=== PATIENT | male | born 1945 | race Hispanic/Latino ===

== ENCOUNTER 2020-03-27 13:06 | Observation (INO) | payer MEDICARE, OTHER ==
[~2020-03-27 13:06] MED LIST: Iopamidol-370 76% 500 ML 1 ML ONE
[2020-03-27 13:59] LABS: #Eosinphils 0.2 thou/uL (0.0-0.7); #Lymphocytes 1.7 thou/uL (1.20-3.40); #Monocytes 0.3 thou/uL (0.11-0.59); #Neutrophils 2.7 thou/uL (1.40-6.50); %Basophils 0.9 % (0.0-1.0); %Lymphocytes 34.4 % (21.0-51.0); %Monocytes 5.2 % (0.0-10.0); %Neutrophils 55.6 % (42.0-75.0); Hemoglobin 13.7 g/dL (14.0-18.0); Mean Corpuscular HGB CONC 36.9 g/dL (32.0-36.0); Mean Corpuscular Volume 94.7 fL (78.0-98.0); Mean Platelet Volume 7.5 fL (7.4-10.4); Platelet Count 183 thou/uL (130-400); RBC Distribution Width 12.5 % (11.5-14.5); Red Blood Cell (RBC) Count 3.91 mill/uL (4.70-6.10); White Blood Cell (WBC) Count 4.8 thou/uL (4.8-10.8)
[2020-03-27 14:13] LABS: PTT 29.3 sec (22.9-36.1)
[2020-03-27 15:54] LABS: ALT (SGPT) 93 U/L (8-55); AST (SGOT) 87 U/L (5-34); Albumin 4.4 g/dL (3.4-4.8); Alkaline Phosphatase 88 U/L (40-110); Anion Gap 15 mmol/L (10-20); BUN (Urea Nitrogen) 9 mg/dL (8.4-25.7); Bilirubin, Total 0.5 mg/dL (0.2-1.2); Calc. Creatinine Clearance 0 mL/min (70-130); Calcium 8.8 mg/dL (7.8-10.44); Carbon Dioxide 21 mmol/L (23-31); Chloride 95 mmol/L (98-107); Estimated GFR-MDRD 55; Globulin 4.5 g/dL (2.4-3.5); Glucose 362 mg/dL (83-110); Lipase 68 U/L (8-78); Potassium 4.1 mmol/L (3.5-5.1); Protein, Total 8.9 g/dL (5.8-8.1); Sodium 127 mmol/L (136-145)
--- NOTE | 2020-03-27 16:42 | CT ---
CTA AORTIC DISSECTION PROTOCOL USING IV CONTRAST AND 3D REFORMATTED IMAGIN03/27/20 COMPARISON: None. INDICATION: Chest and back pain for two weeks. FINDINGS: No acute aortic stenosis, occlusion or aneurysmal formation is demonstrated. There is an aberrant rig ht subclavian artery. There is moderate to severe narrowing involving the origin of the aberrant righ t subclavian artery due to atherosclerotic plaque. This is best seen on image 23 on the axial series. The remaining great vessel origins are widely patent. The right vertebral artery originates off the right common carotid artery. The celiac and SMA are widely patent. 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 There are duplicated left renal arteries. These are widely patent. The LANDRY is patent. Both c ommon iliac arteries are patent. There is a calcified granuloma in the right upper lobe. There are areas of subsegmental volume loss a ffecting both lungs. No pleural effusion is evident. No focal hepatic lesion is evident. The spleen, pancreas, and adrenal glands are normal appearing. Th ere is a small left renal cyst measuring 1.4 cm involving the left mid kidney. There is slight promin ence of the renal pelves bilaterally likely reflecting extrarenal pelves. There is moderate distentio n of the bladder. There is a moderate amount of retained stool within the colon. No free fluid or enl arged lymph nodes are evident. There are remote appearing compression abnormalities involving L1 and L2. There are scattered degener ative and osteoarthritic change. IMPRESSION: 1. Moderate to high grade stenosis involving the origin of an aberrant right subclavian artery. No additional hemodynamically significant stenosis, occlusion or aneurysmal formation demonstrated. 2. Moderate amount of retained stool within the colon. 3. Moderate distention of the bladder. 4. Left renal cyst. POS: BH
[2020-03-27 18:23] LABS: Troponin I 0.014 ng/mL (< 0.028)
[2020-03-27] MEDS ORDERED: Ondansetron ODT 4 MG TAB SL PRN (19:00)
[2020-03-27] MEDS ORDERED: Acetaminophen 325 MG TAB PO PRN (19:00)
[2020-03-27] MEDS ORDERED: Ondansetron PF 4 MG/2 ML Vial IVP PRN (19:00)
[2020-03-27] MEDS ORDERED: Nitroglycerin 0.4 MG TAB (25 Tab Bottle) PO PRN (19:37)
[2020-03-27] MEDS ORDERED: Dextrose 50% Abboject 50 ML SYRINGE SLOW IVP PRN (19:38)
[2020-03-27] MEDS ORDERED: Dextrose 5% in Water 1,000 ML IV PRN (19:38)
[2020-03-27] MEDS ORDERED: Aspirin 325 MG TAB PO SCH (19:45)
[2020-03-27 19:49] VITALS: BMI 28.2
--- NOTE | 2020-03-27 20:10 | HP ---
PRIMARY CARE PROVIDER: Unknown. CHIEF COMPLAINT: Chest pain. HISTORY OF PRESENT ILLNESS: Mr. Haynes is a pleasant 74-year-old gentleman, who was seen at [facility] on March 27, 2020. It appears that he has a history of coronary artery disease and STEMI with stents placed multiple years ago, but has been noncompliant in terms of followup. He presented to the emergency room with 10 days of chest pain, retrosternal, sharp, radiating to back, progressively worsening, no known aggravating factors, but improved with nitroglycerin paste and IV fluids. He denies any fevers or chills. He denies any nausea or vomiting. He reports mild epigastric discomfort, but is unable to characterize it further. REVIEW OF SYSTEMS: All systems were reviewed and found to be negative except for pertinent positives mentioned above. PAST MEDICAL HISTORY: Hypertension; dyslipidemia; hypothyroidism; diabetes mellitus type 2; coronary artery disease, status post PCI with stents. PAST SURGICAL HISTORY: Thyroid surgery and hernia surgery. SOCIAL HISTORY: The patient denies tobacco use, alcohol use, or recreational drug use. ALLERGIES: NO KNOWN DRUG ALLERGIES. CURRENT MEDICATIONS: None. PHYSICAL EXAMINATION: GENERAL: On examination, Mr. Haynes is awake and alert, not in acute distress. Blood pressure is 116/68, pulse is 70, respiratory rate 16, and oxygen saturation 96% on room air. He is afebrile. EYES: No scleral icterus. No conjunctival pallor. ENT: Moist mucosal membranes. No oropharyngeal erythema or exudates. NECK: Supple, nontender. Trachea is midline. RESPIRATORY: Accessory muscles of breathing are not active. Chest wall movements are symmetric bilaterally. Lungs are clear to auscultation without wheeze, rhonchi, or crepitations. CARDIOVASCULAR: S1 and S2 are heard, regular. Peripheral pulses palpable. ABDOMEN: Soft, nontender. Bowel sounds are heard. NEUROLOGIC: Cranial nerves 2 through 12 are intact. MUSCULOSKELETAL: Power is 5/5 in all 4 extremities. SKIN: No rashes. LYMPHATIC: No cervical lymphadenopathy. PSYCHIATRIC: Normal mood, normal affect. The patient is oriented to person, place, and time. LABORATORY DATA: Mr. Haynes's labs and investigations were reviewed. Electrocardiogram shows normal sinus rhythm, no ST changes to suggest an acute coronary syndrome. CT aortic dissection protocol showed moderate to high-grade stenosis involving the origin of an aberrant right subclavian artery. He had moderate amount of retained stool within the colon and moderate distention of the bladder. He had a left renal cyst. He has normal white count, normocytic anemia with hemoglobin 13.7, normal platelet count, INR 1.0, decreased sodium of 127, normal potassium, normal creatinine, normal total bilirubin, elevated AST of 87, elevated ALT of 93, normal alkaline phosphatase, normal troponin I x2, and normal lipase. ASSESSMENT AND PLAN: Mr. Haynes is a pleasant 74-year-old gentleman, who was seen at [facility] on March 27, 2020. His problem list includes: 1. Chest pain: Mr. Haynes is presenting with chest pain. His initial troponins are normal. Given his significant cardiac history, he will be admitted to the hospital on observation status for telemetry monitoring and for stress test. Further management depending on outcome of the test. 2. Hypothyroidism: It appears that Mr. Haynes has been noncompliant with his medications. We will check his TSH. 3. Hyponatremia: Etiology unclear, could be secondary to uncontrolled hypothyroidism. We will provide hydration and recheck sodium level. 4. Abnormal liver function tests: Could be secondary to liver problems or secondary to rhabdomyolysis. We will check CK level. We will also recheck liver function tests. 5. Medication noncompliance: The patient has been counseled regarding medication noncompliance. 6. Diabetes mellitus type 2: I will start him on Accu-Cheks and insulin sliding scale, and check hemoglobin A1c. Many thanks for allowing me to participate in Mr. Haynes's care. Please feel free to contact me with any questions or concerns. LEVEL OF RISK: Moderate. LEVEL OF COMPLEXITY: Moderate. Job ID: [id number]
[2020-03-27] MEDS: Sodium Chloride 0.9% 1,000 ML IV SCH (20:38)
[2020-03-27 20:56] LABS: Troponin I 0.028 ng/mL (< 0.028)
[2020-03-27] MEDS: HumaLOG 300 UNITS/3 ML VIAL SC PRN (21:58)
[2020-03-28 03:42] LABS: Hemoglobin A1c 13.3 % (4.0-6.0)
[2020-03-28 03:48] LABS: #Basophils 0.1 thou/uL (0.0-0.2); #Eosinphils 0.2 thou/uL (0.0-0.7); #Lymphocytes 2.5 thou/uL (1.20-3.40); #Monocytes 0.3 thou/uL (0.11-0.59); #Neutrophils 4.3 thou/uL (1.40-6.50); %Basophils 0.2 % (0.0-1.0); %Eosinophils 3.8 % (0.0-10.0); %Lymphocytes 34.7 % (21.0-51.0); %Monocytes 4.6 % (0.0-10.0); %Neutrophils 55.8 % (42.0-75.0); Hemoglobin 13.2 g/dL (14.0-18.0); Mean Corpuscular HGB CONC 37.3 g/dL (32.0-36.0); Mean Corpuscular Hemoglobin 35.4 pg (27.0-31.0); Mean Corpuscular Volume 95.1 fL (78.0-98.0); Mean Platelet Volume 7.6 fL (7.4-10.4); Platelet Count 183 thou/uL (130-400); RBC Distribution Width 12.5 % (11.5-14.5); Red Blood Cell (RBC) Count 3.73 mill/uL (4.70-6.10); White Blood Cell (WBC) Count 7.5 thou/uL (4.8-10.8)
[2020-03-28 03:49] LABS: ALT (SGPT) 70 U/L (8-55); AST (SGOT) 57 U/L (5-34); Albumin 4.1 g/dL (3.4-4.8); Alkaline Phosphatase 79 U/L (40-110); Anion Gap 19 mmol/L (10-20); BUN (Urea Nitrogen) 10 mg/dL (8.4-25.7); Bilirubin, Total 0.4 mg/dL (0.2-1.2); CK (CPK) 685 U/L (30-200); Calc. Creatinine Clearance 51 mL/min (70-130); Calcium 8.6 mg/dL (7.8-10.44); Carbon Dioxide 17 mmol/L (23-31); Chloride 98 mmol/L (98-107); Estimated GFR-MDRD 55; Globulin 3.7 g/dL (2.4-3.5); Glucose 340 mg/dL (83-110); Potassium 3.8 mmol/L (3.5-5.1); Protein, Total 7.8 g/dL (5.8-8.1); Sodium 130 mmol/L (136-145)
[2020-03-28] MEDS: HumaLOG 300 UNITS/3 ML VIAL SC PRN ×3 (05:38→21:20)
[2020-03-28] MEDS: Sodium Chloride 0.9% 1,000 ML IV SCH (08:52)
[2020-03-28] MEDS: Aspirin 325 mg Enteric Coated Tablet PO SCH (08:53)
[2020-03-28] MEDS ORDERED: Prevnar 13-Val Conj/PF 0.5 ML SYRINGE IM ONE (09:00)
[2020-03-28] MEDS ORDERED: ADENOSINE 60 MG/20 ML VIAL ONE (09:39)
--- NOTE | 2020-03-28 15:03 | NM ---
EXAM: NM Cardiac Stress W EF WF PROVIDED CLINICAL HISTORY: Chest pain COMPARISON: None FINDINGS: This examination was performed as a pharmacological myocardial perfusion stress test. There is diminished attenuation seen in the inferior left ventricular wall from base to apex on the s tress and resting acquisitions. No significant reversible defect is identified. The gated images demonstrate global hypokinesis greater involving the septum and inferior left ventricular wall. Mildl y diminished thickening is seen in the inferior left ventricular wall. Calculated left ventricular ejection fraction is 42%. IMPRESSION: 1. Abnormal myocardial perfusion study with a fixed defect in the inferior left ventricular wall sugg esting scarring. No significant reversible defect is seen to suggest ischemia. 2. Diminished LV function with decreased LVEF of 42%.
[2020-03-28] MEDS ORDERED: Acetaminophen 325 MG TAB PO SCH (16:30)
[2020-03-28] MEDS ORDERED: Communication Order-Pharmacy FS SCH (17:30)
[2020-03-28] MEDS ORDERED: glipiZIDE 5 MG TAB PO SCH (18:15)
[2020-03-28] MEDS ORDERED: metFORMIN 500 MG TAB PO SCH (18:30)
[2020-03-28] MEDS ORDERED: Levothyroxine Sodium 50 MCG TAB PO SCH (18:30)
--- NOTE | 2020-03-28 18:37 | PDOC.HOSPP ---
- Subjective Encounter Date: 03/28/20 Encounter Time: 18:35 Subjective: Pt seen for followup re: chest pain. Reports pain is better. - Objective Vital Signs & Weight: Vital Signs (12 hours) Temp Pulse Resp BP Pulse Ox 03/28/20 15:20 97.5 F L 72 14 147/82 H 96 03/28/20 07:40 96.8 F L 60 14 129/77 94 L 03/28/20 06:55 92 L Weight Weight 154 lb 4.8 oz I&O: 03/27/20 03/28/20 03/29/20 06:59 06:59 06:59 Intake Total 1010 Output Total 350 Balance 660 Result Diagrams: 03/28/20 03:24 03/28/20 03:24 Additional Labs: Accuchecks 03/28/20 03/28/20 03/28/20 17:36 15:16 05:36 POC Glucose 359 H 330 H 329 H 03/27/20 20:12 POC Glucose 266 H Labs and MARs reviewed by me EKG Reviewed by me: Yes (Tele: NSR) Hospitalist ROS - Review of Systems Respiratory: denies: cough, shortness of breath, SOB with excertion, pleuritic pain, wheezing Cardiovascular: reports: chest pain. denies: palpitations, orthopnea, paroxysmal noc. dyspnea, edema, light headedness Gastrointestinal: denies: nausea, vomiting, abdominal pain, diarrhea, constipation, melena, hematochezia Genitourinary: denies: dysuria, frequency, incontinence, hematuria, retention Musculoskeletal: denies: neck pain, shoulder pain, arm pain, back pain, hand pain, leg pain, foot pain Skin: denies: rash, lesions, louie, bruising - Medication Medications: Active Medications Generic Name Dose Route Start Last Admin Trade Name Freq PRN Reason Stop Dose Admin Aspirin 325 mg 03/28/20 09:00 03/28/20 08:53 Ecotrin PO 325 mg DAILY ELIZABETH Administration Glipizide 5 mg 03/28/20 18:15 03/28/20 18:31 Glucotrol PO 03/28/20 21:00 5 mg NOW ELIZABETH Administration Sodium Chloride 1,000 mls @ 70 mls/hr 03/27/20 20:00 03/28/20 08:52 Normal Saline 0.9% IV 1,000 mls .[id number] ELIZABETH Administration Insulin Human Lispro 0 units 03/27/20 19:38 03/28/20 15:23 Humalog SC 5 unit .MILD SLIDING SCALE PRN Administration Mild Correctional Scale Metformin HCl 500 mg 03/28/20 18:30 03/28/20 18:31 Glucophage PO 03/28/20 21:00 500 mg NOW ELIZABETH Administration - Exam General Appearance: awake alert Eye: PERRL ENT: normocephalic atraumatic, moist mucosa Neck: supple, symmetric, no thyromegaly, no lymphadenopathy Heart: RRR, no gallops, no rubs, normal peripheral pulses Respiratory: CTAB, no wheezes, no rales, no ronchi, normal chest expansion Gastrointestinal: soft, non-tender, non-distended, normal bowel sounds Skin: no rashes Musculoskeletal: normal tone, no muscle wasting Psychiatric: normal affect, normal behavior, oriented to person, oriented to place Hosp A/P (1) Chest pain Code(s): R07.9 - CHEST PAIN, UNSPECIFIED Status: Acute (2) Hypothyroidism Code(s): E03.9 - HYPOTHYROIDISM, UNSPECIFIED Status: Chronic (3) Hyponatremia Code(s): E87.1 - HYPO-OSMOLALITY AND HYPONATREMIA Status: Chronic (4) Abnormal LFTs Code(s): R94.5 - ABNORMAL RESULTS OF LIVER FUNCTION STUDIES Status: Chronic (5) Cardiomyopathy Code(s): I42.9 - CARDIOMYOPATHY, UNSPECIFIED Status: Chronic (6) Noncompliance with medication regimen Code(s): Z91.14 - PATIENT'S OTHER NONCOMPLIANCE WITH MEDICATION REGIMEN Status : Chronic - Plan Stress test- fixed defect, EF 42% Start synthroid Transaminitis likely due to rhabdomyolysis Start metformin and sulfonylurea Consult cardiology
--- NOTE | 2020-03-28 18:40 | CON ---
DATE OF CONSULTATION: 03/28/2020 REASON FOR CONSULTATION: Abnormal stress test and chest pain. HISTORY OF PRESENT ILLNESS: Mr. Haynes is a pleasant 74-year-old gentleman from [facility], who comes to the hospital for chest pain. He states that for the last 10 days, he has noted retrosternal mid chest pain radiating to the back and to the left arm. He decided to come in as it was just getting worse. He has a history of coronary artery disease. He had a STEMI apparently about 4 years ago. He was in [place] at that time in [place] and he states that he had a heart catheterization and had a stent placed. He has not followed up with anyone since. On my evaluation, he is currently pain free, however, minimal exertion will cause him to have chest pain. Stress test was performed and showed inferior scar with a low EF at about 40% PAST MEDICAL HISTORY: 1. Hypertension. 2. Hyperlipidemia. 3. Hypothyroidism. 4. Type 2 diabetes. 5. Coronary artery disease as above. PAST SURGICAL HISTORY: 1. Thyroid surgery. 2. Hernia surgery. SOCIAL HISTORY: No alcohol, tobacco, or drugs. ALLERGIES: NO KNOWN DRUG ALLERGIES. OUTPATIENT MEDICATIONS: He is not taking any medicines at this time. REVIEW OF SYSTEMS: A 12-point review of systems was done and was all negative unless stated in the history of present illness. PHYSICAL EXAMINATION: VITAL SIGNS: Temperature 97.5, pulse 72, respiratory rate 14, sats 96% on room air, blood pressure 147/82. GENERAL: Awake, alert, oriented x3, in no distress. HEENT: Normocephalic and atraumatic. NECK: Supple. LUNGS: Clear. CARDIOVASCULAR: S1, S2. No S3 or S4. No murmurs. ABDOMEN: Soft. Positive bowel sounds. EXTREMITIES: No edema. SKIN: Warm and dry. LABORATORY DATA: Laboratory work was reviewed. White count of 4, hemoglobin of 13.7, hematocrit of 37, platelet count of 183. Coags were normal. Chemistries were unremarkable. Sodium was 130, potassium was 3.8, anion gap of 19, BUN of 10, creatinine 1.28, GFR of 55, glucose was high in 300 range. Hemoglobin A1c is 13.3. AST 57, ALT 70, alkaline phosphatase 79. CK was 685. TSH was high at 74. Free T4 is pending. Lipase was normal. Albumin of 4.4. Troponins were negative x3. ASSESSMENT: 1. Abnormal stress with inferior scar and reduced EF. 2. Ischemic cardiomyopathy with EF at 42%. 3. History of myocardial infarction in the past. 4. Noncompliance. 5. Severe hypothyroidism with severely elevated TSH. 6. Medication noncompliance. PLAN: 1. Plan on left heart catheterization tomorrow. He has done it before. He remembers it very well. He agrees to proceed. We spoke with him about the risks and benefits of the procedure. Risks included, but not limited to stroke, OK, , bleeding, need for blood transfusion, limb loss, organ loss. The patient understands and verbalized understanding of this and agrees to proceed. Bare metal stenting if needed given low compliance. 2. Further recommendations per results of coronary angiogram. Job ID: [id number]
[2020-03-28] MEDS ORDERED: Insulin Glargine 10 UNITS in Pre-Filled Syringe 1 EACH SC SCH (19:15)
[2020-03-29] MEDS: Sodium Chloride 0.9% 1,000 ML IV SCH ×2 (05:08→17:22)
[2020-03-29] MEDS: Aspirin 325 mg Enteric Coated Tablet PO SCH (05:09)
[2020-03-29] MEDS ORDERED: Levothyroxine Sodium 50 MCG TAB PO SCH (06:00)
[2020-03-29] MEDS ORDERED: Insulin Glargine 10 UNITS in Pre-Filled Syringe 1 EACH SC SCH (09:00)
[2020-03-29 09:37] LABS: #Basophils 0.1 thou/uL (0.0-0.2); #Eosinphils 0.4 thou/uL (0.0-0.7); #Lymphocytes 2.8 thou/uL (1.20-3.40); #Monocytes 0.5 thou/uL (0.11-0.59); #Neutrophils 6.1 thou/uL (1.40-6.50); %Basophils 1.3 % (0.0-1.0); %Eosinophils 3.9 % (0.0-10.0); %Lymphocytes 28.6 % (21.0-51.0); %Monocytes 4.9 % (0.0-10.0); %Neutrophils 61.4 % (42.0-75.0); Hemoglobin 14.4 g/dL (14.0-18.0); Mean Corpuscular HGB CONC 34.9 g/dL (32.0-36.0); Mean Corpuscular Hemoglobin 33.7 pg (27.0-31.0); Mean Corpuscular Volume 96.5 fL (78.0-98.0); Mean Platelet Volume 7.2 fL (7.4-10.4); Platelet Count 222 thou/uL (130-400); RBC Distribution Width 12.6 % (11.5-14.5); Red Blood Cell (RBC) Count 4.27 mill/uL (4.70-6.10); White Blood Cell (WBC) Count 9.9 thou/uL (4.8-10.8)
[2020-03-29 09:51] LABS: ALT (SGPT) 65 U/L (8-55); AST (SGOT) 56 U/L (5-34); Albumin 4.5 g/dL (3.4-4.8); Alkaline Phosphatase 61 U/L (40-110); Anion Gap 16 mmol/L (10-20); BUN (Urea Nitrogen) 9 mg/dL (8.4-25.7); Bilirubin, Total 0.5 mg/dL (0.2-1.2); Calc. Creatinine Clearance 51 mL/min (70-130); Carbon Dioxide 25 mmol/L (23-31); Chloride 97 mmol/L (98-107); Estimated GFR-MDRD 55; Globulin 3.9 g/dL (2.4-3.5); Glucose 201 mg/dL (83-110); Potassium 3.7 mmol/L (3.5-5.1); Protein, Total 8.4 g/dL (5.8-8.1); Sodium 134 mmol/L (136-145)
[2020-03-29] MEDS ORDERED: Iopamidol 370 76% 50 ML VIAL FS ONE (09:56)
[2020-03-29] MEDS ORDERED: Iopamidol 370 76% 100 ML VIAL ONE (09:56)
[2020-03-29] MEDS ORDERED: Heparin 10,000 UNITS/1 ML VIAL ONE (11:22)
[2020-03-29] MEDS ORDERED: Fentanyl 100 MCG/2 ML VIAL ONE (11:54)
[2020-03-29] MEDS ORDERED: Midazolam HCl 2 mg/2 ml Vial ONE (11:54)
[2020-03-29] MEDS ORDERED: TICAGRELOR 90 MG TABLET ONE (12:13)
[2020-03-29] MEDS ORDERED: Morphine 2 MG/ML SYRINGE SLOW IVP PRN (12:32)
[2020-03-29] MEDS ORDERED: Carvedilol 3.125 MG TAB PO SCH (17:00)
[2020-03-29] MEDS: metFORMIN 500 MG TAB PO SCH ×2 (17:21→19:37)
[2020-03-29] MEDS: glipiZIDE 5 MG TAB PO SCH ×2 (17:21→19:37)
[2020-03-29 19:31] VITALS: BP 141/78; TEMP 97.6
[2020-03-29] MEDS ORDERED: Atorvastatin Calcium 20 MG TAB PO SCH (21:00)
--- NOTE | 2020-03-30 01:32 | DIS ---
DATE OF ADMISSION: 03/27/2020 DATE OF DISCHARGE: 03/29/2020 PRIMARY CARE PROVIDER: Unknown. DISCHARGE DIAGNOSES: 1. Coronary artery disease. 2. Chest pain, most likely secondary to coronary artery disease. 3. Medication noncompliance. 4. Uncontrolled diabetes mellitus. 5. Hypothyroidism. 6. Ischemic cardiomyopathy. 7. Hyponatremia. CONSULTATIONS DURING THIS HOSPITALIZATION: Cardiology, Dr. Francis. CONDITION OF PATIENT ON THE DAY OF DISCHARGE: Stable. I assessed Mr. Haynes on the day of discharge. He denies any chest pain or shortness of breath. Vital signs are stable. S1 and S2 are heard, regular. Lungs are clear to auscultation bilaterally. DISCHARGE MEDICATIONS: 1. Aspirin 81 mg daily. 2. Lipitor 20 mg at bedtime. 3. Coreg 3.125 mg 2 times a day. 4. Plavix 75 mg daily. 5. Glipizide 5 mg 2 times a day. 6. Levothyroxine 25 mcg daily. 7. Lisinopril 2.5 mg daily. 8. Metformin 500 mg 2 times a day, to be started with evening dose on March 31, 2020. DIET: Heart healthy and diabetic. ACTIVITY: No restrictions. DISCHARGE DESTINATION: Home. HOSPITAL COURSE: Mr. Haynes is a pleasant 74-year-old gentleman, who was admitted to [facility] on March 27, 2020, for chest pain. This was in the context of medication noncompliance. Please refer to my history and physical note dated March 27, 2020, for further details. He underwent nuclear stress test, which showed abnormal myocardial perfusion study with a fixed defect in the inferior left ventricular wall suggesting scarring. He had diminished left ventricular function with decreased LVEF of 42%. He was seen by Cardiology Service. On March 28, he underwent cardiac catheterization. He was found to have lesion in the RCA and received bare metal stent. He is being discharged home in a stable condition. His hemoglobin A1c was 13.3 during this hospitalization. TSH was 74.33. Free T4 was less than 0.40. He has been restarted on Synthroid and metformin. Glipizide has been added. He will likely need insulin therapy. He has been advised to find a primary care provider and follow up with them in 3 days time. He has also been advised to follow up with Cardiology Service in 10 days. Job ID: [id number]
[2020-03-30] MEDS ORDERED: Aspirin Chewable 81 MG TAB PO SCH (09:00)
[2020-03-30] MEDS ORDERED: Lisinopril 2.5 MG TAB PO SCH (09:00)
[2020-03-30] MEDS ORDERED: Clopidogrel Bisulfate 75 MG TAB PO SCH (09:00)
--- NOTE | 2020-03-30 12:56 | EKG ---
Test Reason : Blood Pressure : / mmHG Vent. Rate : 073 BPM Atrial Rate : 073 BPM P-R Int : 164 ms QRS Dur : 098 ms QT Int : 412 ms P-R-T Axes : 043 -14 -79 degrees QTc Int : 453 ms Normal sinus rhythm Inferior infarct , age undetermined Abnormal ECG Confirmed by JACKLYN CHAVES ([id number]), department editor CARMELLA VILLARREAL ([id number]) on 03/30/2020 12:55:34 PM Referred By: Confirmed By:JACKLYN Harrison
== END 2020-03-29 23:40 | disposition home or self-care (01) ==
LOC: ERS 13:06 → 2NO 19:03
PROVIDERS: ADMIT Internal Medicine; ATTEND Internal Medicine
PROC: 02703DZ Dilation of Coronary Artery, One Artery with Intraluminal Device, Percutaneous Approach (ICD-10-PCS; principal; 2020-03-29)
PROC: 4A023N7 Measurement of Cardiac Sampling and Pressure, Left Heart, Percutaneous Approach (ICD-10-PCS; 2020-03-29)
PROC: B2111ZZ Fluoroscopy of Multiple Coronary Arteries using Low Osmolar Contrast (ICD-10-PCS; 2020-03-29)
DX: I25.10 Atherosclerotic heart disease of native coronary artery without angina pectoris (principal); R07.9 Chest pain, unspecified; E11.9 Type 2 diabetes mellitus without complications; E03.9 Hypothyroidism, unspecified; E87.1 Hypo-osmolality and hyponatremia; I25.5 Ischemic cardiomyopathy; I25.2 Old myocardial infarction; I10 Essential (primary) hypertension; E78.5 Hyperlipidemia, unspecified; E78.00 Pure hypercholesterolemia, unspecified; I70.208 Unspecified atherosclerosis of native arteries of extremities, other extremity; N28.1 Cyst of kidney, acquired; R94.5 Abnormal results of liver function studies; R74.0 Nonspecific elevation of levels of transaminase and lactic acid dehydrogenase [LDH]; Z23 Encounter for immunization; Z91.14 Patient's other noncompliance with medication regimen; Z95.5 Presence of coronary angioplasty implant and graft
CPT/HCPCS: 71275; 72191; 74175; 78452; 80053 ×2; 82550 ×2; 82962 ×3; 83036; 83690; 84439; 84484 ×2; 85025 ×2; 85347 ×2; 85610; 85730; 90670; 92928; 93005 ×2; 93017; 93306; 93458; 94760 ×2; 96360; 96361 ×2; 99285; A9500; C1876; G0009; G0378 ×4; 36415; 36416; 84443; 90471; 93010; 99152; 99153; J0153; J1644; J1815; J2250; J3010; Q9967